=== PATIENT | female | born 1990 | race Caucasian/White ===

== ENCOUNTER 2016-12-10 08:21 | Emergency (ER) | payer OTHER, BC ==
[2016-12-10] MEDS ORDERED: IBUPROFEN 600 MG TABLET PO ONE (09:56)
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
[2016-12-10 10:59] VITALS: BP 122/68
== END 2016-12-10 10:59 | disposition home or self-care (01) ==
LOC: ER 08:21
DX: S40.011A Contusion of right shoulder, initial encounter (principal); M54.2 Cervicalgia; M25.511 Pain in right shoulder; V87.7XXA Person injured in collision between other specified motor vehicles (traffic), initial encounter
CPT/HCPCS: 99284